=== PATIENT | male | born 1970 | race African-American/Black ===

== ENCOUNTER 2022-03-04 11:04 | Observation (INO) ==
[2022-03-04] MEDS ORDERED: CLINDAMYCIN INJ 900 MG/50 ML PREMIX IV STA (12:24)
[2022-03-04 12:28] LABS: Mucus,Urine Many /LPF (Occasional); RBC,Urine 16 /HPF (0-4); Squamous Epithelial Cell,Urine Occasional /HPF (0-10); Urine Color Yellow (Yellow)
[2022-03-04 12:29] LABS: Bilirubin,Urine Negative (Negative); Blood, Urine Small mg/dL (Negative); Glucose,Urine (UA) Negative (Negative); Ketones,Urine Trace mg/dL (Negative); Nitrite,Urine Negative (Negative); Protein,Urine Negative (Negative); Urine Appearance Clear (Clear); Urine Specific Gravity > 1.030 (1.001-1.035); Urine Urobilinogen 0.2 eU/dL (<2.0)
[2022-03-04 12:51] LABS: Basophils % 0.3 % (0.0-0.8); Eosinophils % 0.1 % (0.00-10.9); Hematocrit 41.3 VOL% (42.0-52.0); Hemoglobin 13.4 GM/DL (14.0-18.0); Immature Granulocytes % 0.4 %; Immature Granulocytes Absolute 0.06 #; Lymphocytes # 1.8 10*3/uL (1.4-4.0); Lymphocytes % 12.8 % (21.2-54.2); Mean Corpuscular HGB Conc 32.4 GM/DL (32-36); Mean Corpuscular Volume 89.2 FL (87-102); Monocytes # 1.3 10*3/uL (0.11-0.8); Monocytes % 9.6 % (1.7-12.7); Neutrophils % 76.8 % (38.7-73.9); Platelet Count 247 T/CUMM (130-400); Red Blood Count 4.63 MC/CUMM (3.8-5.5)
[2022-03-04] MEDS ORDERED: SODIUM CHLORIDE 0.9% 1,000 ML IV STA (14:03)
[2022-03-04 14:29] LABS: Calcium 9.2 MG/DL (8.5-10.1); Osmolality,Calculated 275.5 MOS/KG (273-304); Potassium 3.6 MMOL/L (3.5-5.1)
[2022-03-04] MEDS ORDERED: GLUCAGON 1 MG VIAL IM PRN (15:15)
[2022-03-04] MEDS ORDERED: ONDANSETRON 4 MG/2 ML VIAL IV PRN (15:15)
[2022-03-04] MEDS ORDERED: DEXTROSE 10% 250 ML BAG IV PRN (15:21)
[2022-03-04] MEDS ORDERED: cefTRIAXone 1,000 MG in SODIUM CHLORIDE 0.9% 100 ML IV STA (15:40)
[2022-03-04] MEDS ORDERED: FLUCONAZOLE INJ 200 MG/100 ML PREMIX IV ONE (15:40)
[2022-03-04] MEDS: ENOXAPARIN 40 MG/0.4 ML SYRINGE SUBCUT SCH (16:06)
[2022-03-04] MEDS: KETOROLAC 30 MG/1 ML VIAL IV SCH ×2 (16:28→21:18)
[2022-03-04 18:10] LABS: HIV Antigen/Antibody Result Nonreactive (Nonreactive)
[2022-03-04] MEDS: BACLOFEN 10 MG TABLET PO SCH (20:52)
[2022-03-04] MEDS: CLINDAMYCIN INJ 600 MG/50 ML PREMIX IV SCH (20:52)
[2022-03-05] MEDS: KETOROLAC 30 MG/1 ML VIAL IV SCH ×4 (04:21→21:15)
[2022-03-05] MEDS: CLINDAMYCIN INJ 600 MG/50 ML PREMIX IV SCH ×3 (04:21→21:15)
[2022-03-05 05:46] LABS: Basophils % 0.3 % (0.0-0.8); Eosinophils % 0.3 % (0.00-10.9); Hematocrit 35.7 VOL% (42.0-52.0); Hemoglobin 11.5 GM/DL (14.0-18.0); Immature Granulocytes % 0.4 %; Immature Granulocytes Absolute 0.05 #; Lymphocytes % 17.1 % (21.2-54.2); Mean Corpuscular HGB Conc 32.2 GM/DL (32-36); Mean Corpuscular Volume 88.8 FL (87-102); Mean Platelet Volume 11.1 FL (9.6-12.0); Monocytes # 1.3 10*3/uL (0.11-0.8); Monocytes % 10.9 % (1.7-12.7); Platelet Count 234 T/CUMM (130-400); Red Blood Count 4.02 MC/CUMM (3.8-5.5); Red Cell Distribution Width 14.6 % (9.3-17.3); White Blood Count 11.9 T/CUMM (4-12)
[2022-03-05 06:04] LABS: Alanine Aminotransferase 26 U/L (16-61); Albumin 2.7 G/DL (3.4-5.0); Alkaline Phosphatase 70 U/L (45-117); Aspartate Amino Transferase 21 U/L (0-37); Bilirubin,Total < 0.39 MG/DL (0.20-1.00); Blood Urea Nitrogen 17 MG/DL (7-18); Calcium 8.6 MG/DL (8.5-10.1); Carbon Dioxide 22 MMOL/L (21-32); Chloride 111 MMOL/L (98-107); Glucose 89 MG/DL (74-106); Osmolality,Calculated 281.3 MOS/KG (273-304); Potassium 3.5 MMOL/L (3.5-5.1); Sodium 141 MMOL/L (136-145); Total Protein 6.8 G/DL (6.4-8.2)
[2022-03-05] MEDS ORDERED: LIDOCAINE 2% 5 ML VIAL ONE (06:41)
[2022-03-05] MEDS ORDERED: ONDANSETRON 4 MG/2 ML VIAL ONE (06:41)
[2022-03-05] MEDS ORDERED: propofoL 200 MG/20 ML VIAL IV ONE ×2 (06:41→07:32)
[2022-03-05] MEDS ORDERED: MIDAZOLAM 2 MG/2 ML VIAL ONE (06:41)
[2022-03-05] MEDS ORDERED: fentaNYL 100 MCG/2 ML VIAL ONE (06:41)
[2022-03-05] MEDS ORDERED: ACETAMINOPHEN INJ 1,000 MG/100 ML VIAL IV ONE (06:43)
[2022-03-05] MEDS ORDERED: ROPIVACAINE 0.5% 30 ML VIAL ONE (07:27)
[2022-03-05] MEDS ORDERED: SEVOFLURANE 1 UNIT/15 MINUTE INH ONE (07:39)
[2022-03-05] MEDS: PANTOPRAZOLE 40 MG TABLET PO SCH (09:24)
[2022-03-05] MEDS: BACLOFEN 10 MG TABLET PO SCH ×3 (09:24→21:15)
[2022-03-05] MEDS: ENOXAPARIN 40 MG/0.4 ML SYRINGE SUBCUT SCH (16:15)
[2022-03-06] MEDS: CLINDAMYCIN INJ 600 MG/50 ML PREMIX IV SCH ×2 (04:17→14:32)
[2022-03-06] MEDS: KETOROLAC 30 MG/1 ML VIAL IV SCH ×2 (04:17→09:32)
[2022-03-06 05:59] LABS: Basophils % 0.3 % (0.0-0.8); Eosinophils # 0.1 10*3/uL (0.0-0.87); Eosinophils % 1.2 % (0.00-10.9); Hematocrit 36.2 VOL% (42.0-52.0); Hemoglobin 11.6 GM/DL (14.0-18.0); Immature Granulocytes % 0.2 %; Immature Granulocytes Absolute 0.02 #; Lymphocytes # 1.8 10*3/uL (1.4-4.0); Lymphocytes % 20.4 % (21.2-54.2); Mean Corpuscular Volume 88.3 FL (87-102); Mean Platelet Volume 10.9 FL (9.6-12.0); Monocytes # 0.9 10*3/uL (0.11-0.8); Monocytes % 9.5 % (1.7-12.7); Neutrophils % 68.4 % (38.7-73.9); Platelet Count 274 T/CUMM (130-400); Red Cell Distribution Width 14.6 % (9.3-17.3)
[2022-03-06 06:26] LABS: Alanine Aminotransferase 24 U/L (16-61); Albumin 2.6 G/DL (3.4-5.0); Alkaline Phosphatase 73 U/L (45-117); Aspartate Amino Transferase 15 U/L (0-37); Bilirubin,Total < 0.39 MG/DL (0.20-1.00); Blood Urea Nitrogen 14 MG/DL (7-18); Calcium 8.9 MG/DL (8.5-10.1); Carbon Dioxide 22 MMOL/L (21-32); Chloride 114 MMOL/L (98-107); Glucose 102 MG/DL (74-106); Osmolality,Calculated 286.8 MOS/KG (273-304); Potassium 3.4 MMOL/L (3.5-5.1); Sodium 144 MMOL/L (136-145); Total Protein 6.6 G/DL (6.4-8.2)
[2022-03-06] MEDS: PANTOPRAZOLE 40 MG TABLET PO SCH (09:31)
[2022-03-06] MEDS: BACLOFEN 10 MG TABLET PO SCH (09:32)
[2022-03-06 12:09] VITALS: BP 133/75
[2022-03-06] MEDS ORDERED: POTASSIUM CHLORIDE 20 MEQ TABLET PO ONE (12:47)
== END 2022-03-06 14:48 | disposition home or self-care (01) ==
LOC: N.ED 11:04 → N.EDINP 11:04 → SUATTDRO 15:15 → N.5E 17:33
PROVIDERS: ADMIT Family Medicine; ATTEND Internal Medicine